=== PATIENT | female | born 1940 | race Hispanic/Latino ===

== ENCOUNTER 2021-04-19 15:14 | Emergency (ER) | payer MEDICARE, OTHER ==
[2021-04-19] MEDS ORDERED: fentaNYL 100 MCG/2 ML INJ IV ONE ×2 (15:38→17:52)
[2021-04-19] MEDS ORDERED: ONDANSETRON 4 MG/2 ML INJ IV ONE (15:38)
--- NOTE | 2021-04-19 15:47 | Emergency Department Report ---
HPI - General Chief Complaint: Extremity Injury, Upper Time Seen by Provider: 04/19/21 15:22 - HPI HPI: Room 37 The patient is a 80-year-old female presenting with a chief complaint of pain after fall. Patient states approximately 3 days ago she fell while trying to get out of her bed landing on her left arm. Patient states the bedside table tumbled over and landed on top of her. Patient states she thinks she may have lost consciousness. The patient continuously states she does not wish to return to the assisted living facility where this accident happened secondary to poor treatment. Patient states after her fall she called out while on the ground and reports the responding staff member kicked her telling her to "get up." She states the staff member eventually assisted her up and into bed. Patient complains of pain in her left arm and neck. EMS who came to the assisted living facility today stated it appeared as though staff members were trying to prevent the patient from speaking during their assessment frequently interrupting stating that the patient has dementia. ED Past Medical Hx - Past Medical History Previous Medical History?: Yes Hx CVA: Yes (Left-sided weakness) Hx Dementia: Yes - Surgical History Past Surgical History?: No - Family History Family history: no significant - Social History Smoking Status: Never Smoker Substance Use Type: None - Medications Home Medications: Home Medications Medication Instructions Recorded Confirmed Last Taken Type Apixaban [Eliquis] 5 mg PO BID 04/19/21 04/19/21 Unknown History Aricept 5 mg PO ONCE 04/19/21 04/19/21 Unknown History Oxybutynin 5 mg BID 04/19/21 04/19/21 Unknown History Pantoprazole 40 mg BID 04/19/21 04/19/21 Unknown History QUEtiapine [SEROquel] 25 mg PO BID 04/19/21 04/19/21 Unknown History Quetiapine Fumarate [SEROquel XR] 150 mg PO HS 04/19/21 04/19/21 Unknown History Sertraline [Zoloft] 100 mg PO QDAY 04/19/21 04/19/21 Unknown History ED Review of Systems ROS: Stated complaint: LEFT ARM PAIN Other details as noted in HPI Constitutional: no symptoms reported Eyes: denies: eye pain ENT: denies: throat pain Respiratory: no symptoms reported Cardiovascular: denies: chest pain Endocrine: no symptoms reported Gastrointestinal: denies: abdominal pain Musculoskeletal: arthralgia, myalgia Skin: change in color Neurological: other (LOC) Physical Exam - Physical Exam Vital Signs: Vital Signs 04/19/21 15:18 Pulse Rate 85 Respiratory 16 Rate Blood Pressure 152/89 [Right] O2 Sat by Pulse 95 Oximetry Physical Exam: GENERAL: The patient is well-developed well-nourished female lying on stretcher not appearing to be in acute distress. [] HEENT: Normocephalic. Atraumatic. Extraocular motions are intact. Patient has moist mucous membranes. NECK: Supple. No axial step-offs but there is midline tenderness to palpation CHEST/LUNGS: Clear to auscultation. There is no respiratory distress noted. HEART/CARDIOVASCULAR: Regular. There is no tachycardia. There is no gallop rub or murmur. 2+ left radial pulse ABDOMEN: Abdomen is soft, nontender. Patient has normal bowel sounds. There is no abdominal distention. SKIN: There is ecchymosis surrounding the mid to distal humerus region to the antecubital fossa on the left. There is tenderness to palpation of the humerus NEURO: The patient is awake, alert, and oriented. The patient is cooperative. Cranial nerves II through XII grossly intact the exception of cranial nerve #11 which was not tested secondary to patient's presenting problem. The patient has normal speech. GCS 15 MUSCULOSKELETAL: There is tenderness to palpation of the left humerus ED Course Vital Signs 04/19/21 15:18 Pulse Rate 85 Respiratory 16 Rate Blood Pressure 152/89 [Right] O2 Sat by Pulse 95 Oximetry ED Medical Decision Making - Lab Data Result diagrams: 04/19/21 15:46 04/19/21 15:46 Laboratory Tests 04/19/21 04/19/21 04/19/21 15:46 15:46 15:46 WBC 10.1 RBC 3.71 Hgb 11.3 Hct 33.4 MCV 90 MCH 31 MCHC 34 RDW 17.0 H Plt Count 251 Lymph % (Auto) 24.4 Cloud % (Auto) 9.8 H Eos % (Auto) 2.5 Baso % (Auto) 0.4 Lymph # (Auto) 2.5 Cloud # (Auto) 1.0 H Eos # (Auto) 0.3 Baso # (Auto) 0.0 Seg Neutrophils % 62.9 Seg Neutrophils # 6.4 PT 15.5 H INR 1.18 H APTT 29.4 Sodium 140 Potassium 4.0 Chloride 105.4 Carbon Dioxide 27 Anion Gap 12 BUN 17 Creatinine 0.5 L Estimated GFR > 60 BUN/Creatinine Ratio 34 Glucose 117 H Calcium 8.8 Total Bilirubin 0.70 AST 14 ALT 11 Alkaline Phosphatase 79 Total Protein 6.1 L Albumin 3.2 L Albumin/Globulin Ratio 1.1 - Radiology Data Radiology results: report reviewed (CT head, CT cervical spine, left humerus x- ray, left forearm x-ray), image reviewed (CT head, CT cervical spine, left humerus x-ray, left forearm x-ray) interpreted by me: Left shoulder [id number] head fracture, no dislocation Left forearm x-ray-no acute fracture [facility] [address] [place] [address] Cat Scan Report Signed Patient: SANDRO HIGH MR#: [id number] : 1940 Acct:[id number] Age/Sex: 80 / F ADM Date: 04/19/21 Loc: ED Attending Dr: Ordering Physician: GRACIE WAHL MD Date of Service: 04/19/21 Procedure(s): CT head/brain wo con Accession Number(s): [id number] cc: GRACIE WAHL MD CT head/brain wo con INDICATION / CLINICAL INFORMATION: 80 years Female; Post-Fall with L.O.C., now with head pain. TECHNIQUE: Routine CT head without contrast. All CT scans at this location are performed using CT dose reduction for ALARA by means of automated exposure control. COMPARISON: None. FINDINGS: BRAIN / INTRACRANIAL CONTENTS: There is extensive encephalomalacia involving right cerebral hemisphere compatible old right MCA infarct predominantly involving right frontal and parietal lobes. There is ex vacuo dilatation of the right lateral ventricle. Encephalomalacia is also seen involving the anterior left frontal lobe again indicative of old infarct at. There is no clear CT evidence of acute intracranial hemorrhage or significant mass effect. ORBITS: No significant ab normality of visualized orbits. SINUSES / MASTOIDS: There is focal opacification along the posterior right ethmoid sinus. CRANIOCERVICAL JUNCTION: No significant abnormality. ADDITIONAL FINDINGS: None. IMPRESSION: 1. 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 Signer Name: Karel Vides MD Signed: 04/19/2021 5:22 PM Workstation Name: [id number] Transcribed By: MR Dictated By: Karel Vides MD Electronically Authenticated By: Karel Vides MD Signed Date/Time: 04/19/211721 DD/ 18 TD/TT: Print Cancel [facility] [address] [place] [address] Cat Scan Report Signed Patient: SANDRO HIGH MR#: [id number] : 1940 Acct:[id number] Age/Sex: 80 / F ADM Date: 04/19/21 Loc: ED Attending Dr: Ordering Physician: GRACIE WAHL MD Date of Service: 04/19/21 Procedure(s): CT cervical spine wo con Accession Number(s): [id number] cc: GRACIE WAHL MD CT cervical spine wo con INDICATION / CLINICAL INFORMATION: 80 years Female; Post- Fall with L.O.C., now with neck pain. TECHNIQUE: Axial CT images of the cervical spine were obtained. Sagittal and coronal reformatted images were produced. All CT scans at this location are performed using CT dose reduction for ALARA by means of automated exposure control. COMPARISON: None available. FINDINGS: POST- SURGICAL CHANGES: None. ALIGNMENT: There is mild reversal the cervical lordosis without significant spondylolisthesis. VERTEBRAE: There is moderate disc space narrowing with endplate changes at C4-5 and C5-6. There is diffuse osteopenia. However, there is no clear CT evidence of acute fracture involving cervical spine. INTRAVERTEBRAL DISCS: The central spondylosis at C4-5 minimally encroaches on the ventral cord. There is moderate to marked foraminal narrowing, greater on the right. There is marked right and moderate to marked left foraminal narrowing at C5-6. The spondylosis also effaces the subarachnoid space. The left spondylosis at C6-7 effaces the left subarachnoid space. There is marked neural foraminal narrowing bilaterally. PARASPINAL SOFT TISSUES: No prevertebral soft tissue fluid collections are identified. There is moderate atherosclerotic calcification involving carotid bifurcations bilaterally. ADDITIONAL FINDINGS: There is a 4 mm calcified granuloma within the visualized left lung apex. IMPRESSION: 1. There are multilevel degenerative the changes involving cervical spine as detailed above. 2. There is no CT evidence of acute fracture. Signer Name: Karel Vides MD Signed: 04/19/2021 5:26 PM Workstation Name: [id number] Transcribed By: MR Dictated By: Karel Vides MD Electronically Authenticated By: Karel Vides MD Signed Date/Time: 04/19/211725 DD/ 21 TD/TT: [employer] [address] [address] XRay Report Signed Patient: SANDRO HIGH MR#: [id number] : 1940 Acct:[id number] Age/Sex: 80 / F ADM Date: 04/19/21 Loc: ED Attending Dr: Ordering Physician: GRACIE WAHL MD Date of Service: 04/19/21 Procedure(s): XR forearm LT Accession Number(s): [id number] cc: GRACIE WAHL MD Fluoro Time In Minutes: LEFT FOREARM, 3 VIEWS INDICATION / CLINICAL INFORMATION: Pain after fall. COMPARISON: None available. FINDINGS: The radius and ulna appear intact. No fracture or dislocation identified. The bones are mildly demineralized. No significant soft tissue abnormality. IMPRESSION: No fracture or dislocation involving the forearm. Signer Name: Lani Spring MD Signed: 04/19/2021 6:52 PM Workstation Name: [id number] Transcribed By: JR Dictated By: Lani Spring MD Electronically Authenticated By: Lani Spring MD Signed Date/Time: 04/19/211851 DD/ 49 TD/TT: Print [employer] [address] [address] XRa y Report Signed Patient: SANDRO HIGH MR#: [id number] : 1940 Acct:[id number] Age/Sex: 80 / F ADM Date: 04/19/21 Loc: ED Attending Dr: Ordering Physician: GRACIE WAHL MD Date of Service: 04/19/21 Procedure(s): XR humerus 2+V LT Accession Number(s): [id number] cc: GRACIE WAHL MD Fluoro Time In Minutes: LEFT HUMERUS, 2 VIEWS INDICATION / CLINICAL INFORMATION: Pain after fall. COMPARISON: None available. FINDINGS: There is a mildly displaced fracture through the humeral neck of the proximal humerus. On the AP view, there does not appear to be glenohumeral dislocation. Technologist performed a transthoracic view instead of the lateral view in order to not move the patient's arm. However on the transthoracic view is difficult to determine exact placement of the humeral head with respect to the glenoid. There are a few round calcific bodies along the lower portion of the glenohumeral joint probably representing large osteochondral loose bodies. The visualized portions of the left ribs appear grossly intact as does the remainder of the shoulder. IMPRESSION: Transverse fracture of the humeral neck. No obvious dislocation of the glenohumeral joint on this single view. The second view, transthoracic view, does not identify the glenohumeral joint well. Signer Name: Lani Spring MD Signed: 04/19/2021 6:56 PM Workstation Name: [id number] Transcribed By: JR Dictated By: Lani Spring MD Electronically Authenticated By: Lani Spring MD Signed Date/Time: 04/19/211855 DD/ 51 TD/TT: Print Cancel - Differential Diagnosis Close head injury, ICH, cervical fracture, cervical strain, humerus fractur Critical care attestation.: If time is entered above; I have spent that time in minutes in the direct care of this critically ill patient, excluding procedure time. ED Disposition Clinical Impression: Fracture of humeral head, left, closed, Closed head injury, Cervical strain, acute, Encounter for examination for admission to assisted living facility Disposition: 01 HOME / SELF CARE / HOMELESS Is pt being admited?: No Does the pt Need Aspirin: No Condition: Stable Instructions: Humerus Fracture Treated With Immobilization, [id number], Humerus Fracture Treated With ORIF Referrals: PRIMARY MD SO [Primary Care Provider] - 3-5 Days KATHLEEN DWYER MD [Staff Physician] - 3-5 Days
[2021-04-19 15:58] LABS: Basophils % (Auto) 0.4 % (0.0-1.8); Eosinophils # (Auto) 0.3 K/mm3 (0.0-0.4); Eosinophils % (Auto) 2.5 % (0.0-4.3); Hematocrit 33.4 % (30.3-42.9); Hemoglobin 11.3 gm/dl (10.1-14.3); Lymphocytes # (Auto) 2.5 K/mm3 (1.2-5.4); Lymphocytes % (Auto) 24.4 % (13.4-35.0); Mean Corpuscular HGB Conc 34 % (30-34); Mean Corpuscular Volume 90 fl (79-97); Monocytes % (Auto) 9.8 % (0.0-7.3); Platelet Count 251 K/mm3 (140-440); Red Blood Count 3.71 M/mm3 (3.65-5.03)
[2021-04-19 16:10] LABS: INR 1.18 (0.87-1.13)
[2021-04-19 16:12] LABS: Partial Thromboplastin Time 29.4 Sec. (24.2-36.6)
[2021-04-19 16:25] LABS: Alanine Aminotransferase 11 units/L (7-56); Albumin 3.2 g/dL (3.9-5); BUN/Creatinine Ratio 34; Blood Urea Nitrogen 17 mg/dL (7-17); Calcium 8.8 mg/dL (8.4-10.2); Hemolysis Index 11
--- NOTE | 2021-04-19 17:27 | Cat Scan Report ---
CT head/brain wo con INDICATION / CLINICAL INFORMATION: 80 years Female; Post-Fall with L.O.C., now with head pain. TECHNIQUE: Routine CT head without contrast. All CT scans at this location are performed using CT dos e reduction for ALARA by means of automated exposure control. COMPARISON: None. FINDINGS: BRAIN / INTRACRANIAL CONTENTS: There is extensive encephalomalacia involving right cerebral hemispher e compatible old right MCA infarct predominantly involving right frontal and parietal lobes. There is ex vacuo dilatation of the right lateral ventricle. Encephalomalacia is also seen involving the ant erior left frontal lobe again indicative of old infarct at. There is no clear CT evidence of acute in tracranial hemorrhage or significant mass effect. ORBITS: No significant abnormality of visualized orbits. SINUSES / MASTOIDS: There is focal opacification along the posterior right ethmoid sinus. CRANIOCERVICAL JUNCTION: No significant abnormality. ADDITIONAL FINDINGS: None. IMPRESSION: 1. 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 Signer Name: Karel Vides MD Signed: 04/19/2021 5:22 PM Workstation Name: [id number]
--- NOTE | 2021-04-19 17:31 | Cat Scan Report ---
CT cervical spine wo con INDICATION / CLINICAL INFORMATION: 80 years Female; Post-Fall with L.O.C., now with neck pain. TECHNIQUE: Axial CT images of the cervical spine were obtained. Sagittal and coronal reformatted images were pr oduced. All CT scans at this location are performed using CT dose reduction for ALARA by means of aut omated exposure control. COMPARISON: None available. FINDINGS: POST-SURGICAL CHANGES: None. ALIGNMENT: There is mild reversal the cervical lordosis without significant spondylolisthesis. VERTEBRAE: There is moderate disc space narrowing with endplate changes at C4-5 and C5-6. There is di ffuse osteopenia. However, there is no clear CT evidence of acute fracture involving cervical spine. INTRAVERTEBRAL DISCS: The central spondylosis at C4-5 minimally encroaches on the ventral cord. There is moderate to marked foraminal narrowing, greater on the right. There is marked right and moderate to marked left foraminal narrowing at C5-6. The spondylosis also effaces the subarachnoid space. The left spondylosis at C6-7 effaces the left subarachnoid space. There is marked neural foraminal na rrowing bilaterally. PARASPINAL SOFT TISSUES: No prevertebral soft tissue fluid collections are identified. There is moder ate atherosclerotic calcification involving carotid bifurcations bilaterally. ADDITIONAL FINDINGS: There is a 4 mm calcified granuloma within the visualized left lung apex. IMPRESSION: 1. There are multilevel degenerative the changes involving cervical spine as detailed above. 2. There is no CT evidence of acute fracture. Signer Name: Karel Vides MD Signed: 04/19/2021 5:26 PM Workstation Name: [id number]
--- NOTE | 2021-04-19 18:56 | XRay Report ---
LEFT FOREARM, 3 VIEWS INDICATION / CLINICAL INFORMATION: Pain after fall. COMPARISON: None available. FINDINGS: The radius and ulna appear intact. No fracture or dislocation identified. The bones are mildly demineralized. No significant soft tissue abnormality. IMPRESSION: No fracture or dislocation involving the forearm. Signer Name: Lani Spring MD Signed: 04/19/2021 6:52 PM Workstation Name: [id number]
[2021-04-19] MEDS ORDERED: oxyCODONE /ACETAMINOPHEN 5-325MG TAB PO PRN (18:58)
--- NOTE | 2021-04-19 19:00 | XRay Report ---
LEFT HUMERUS, 2 VIEWS INDICATION / CLINICAL INFORMATION: Pain after fall. COMPARISON: None available. FINDINGS: There is a mildly displaced fracture through the humeral neck of the proximal humerus. On the AP view , there does not appear to be glenohumeral dislocation. Technologist performed a transthoracic view i nstead of the lateral view in order to not move the patient's arm. However on the transthoracic view is difficult to determine exact placement of the humeral head with respect to the glenoid. There are a few round calcific bodies along the lower portion of the glenohumeral joint probably repr esenting large osteochondral loose bodies. The visualized portions of the left ribs appear grossly intact as does the remainder of the shoulder. IMPRESSION: Transverse fracture of the humeral neck. No obvious dislocation of the glenohumeral joint on this single view. The second view, transthoracic view, does not identify the glenohumeral joint w ell. Signer Name: Lani Spring MD Signed: 04/19/2021 6:56 PM Workstation Name: [id number]
[2021-04-20] MEDS ORDERED: ARICEPT 5 MG PO SCH (01:15)
[2021-04-20] MEDS ORDERED: NON-FORMULARY EACH (Pantoprazole 40 MG) PO SCH (10:00)
[2021-04-20] MEDS ORDERED: PANTOPRAZOLE 40 MG TAB PO SCH (10:00)
[2021-04-20] MEDS ORDERED: DONEPEZIL 5 MG TAB PO SCH (22:00)
[2021-04-21 00:31] VITALS: BP 107/62
== END 2021-04-20 19:15 | disposition home or self-care (01) ==
LOC: ED 15:14
DX: S43.402A Unspecified sprain of left shoulder joint, initial encounter (principal); S16.1XXA Strain of muscle, fascia and tendon at neck level, initial encounter; S09.90XA Unspecified injury of head, initial encounter; Z02.2 Encounter for examination for admission to residential institution; Z20.822 Contact with and (suspected) exposure to COVID-19; Z86.73 Personal history of transient ischemic attack (TIA), and cerebral infarction without residual deficits; F03.90 Unspecified dementia, unspecified severity, without behavioral disturbance, psychotic disturbance, mood disturbance, and anxiety; W19.XXXA Unspecified fall, initial encounter; Y93.89 Activity, other specified; Y92.89 Other specified places as the place of occurrence of the external cause; Y99.8 Other external cause status
CPT/HCPCS: 36415; 70450; 72125; 73060; 73090; 80053; 85025; 85610; 85730; 96374; 96375; 96376; 99285; J2405; J3010; U0003